=== PATIENT | female | born 1995 ===

== ENCOUNTER 2020-09-12 12:19 | Emergency (ER) | payer MEDICAID ==
[2020-09-12 12:58] VITALS: BP 124/76
[2020-09-12 14:04] LABS: Basophils # (Auto) 0.1 K/mm3 (0.0-0.1); Basophils % (Auto) 0.8 % (0.0-1.8); Eosinophils # (Auto) 0.3 K/mm3 (0.0-0.4); Eosinophils % (Auto) 2.8 % (0.0-4.3); Hematocrit 42.7 % (30.3-42.9); Hemoglobin 14.2 gm/dl (10.1-14.3); Lymphocytes # (Auto) 1.6 K/mm3 (1.2-5.4); Mean Corpuscular HGB Conc 33 % (30-34); Mean Corpuscular Volume 83 fl (79-97); Monocytes % (Auto) 9.9 % (0.0-7.3); Red Blood Count 5.14 M/mm3 (3.65-5.03); Red Cell Distribution Width 13.8 % (13.2-15.2)
[2020-09-12 14:18] LABS: Bacteria,Urine 1+ /HPF (Negative); Bilirubin,Urine NEG (Negative); Blood,Urine LG (Negative); Color,Urine Yellow (Yellow); Mucus,Urine 3+ /HPF; Urobilinogen,Urine < 2.0 mg/dL (<2.0)
--- NOTE | 2020-09-12 14:34 | Emergency Department Report ---
ED General Adult HPI - General Chief complaint: Abdominal Pain Stated complaint: CRAMPING LIGHT HEADED NAUSEOUS Time Seen by Provider: 09/12/20 14:01 Source: patient Mode of arrival: Ambulatory Limitations: No Limitations - History of Present Illness Initial comments: 24-year-old female with no significant past medical history presents to the ER today with complaint of nausea, dizziness and cyst to her right neck. Patient states that symptoms started a couple days ago. She states that she vomited 2 days ago but none since. She states that she does have a mild dry cough which causes pain in her throat when she coughs. She reports no diarrhea, UTI symptoms, abdominal pain, fever at home, chills, runny nose, nasal congestion, headache or any additional symptoms. She states that she is not sure if her symptoms could be coming from the cyst to her right neck or from dehydration. She states that she has had the cyst for a while, but she states that since Monday is becoming a bit more painful and swollen. She states that she has had a cut out once before in the past. Patient denies any ill contacts. She denies any tobacco use. She states she is a social drinker. She denies any illicit drug use. She denies any recent travel. She states that she has not received a COVID-19 vaccine. She has not taken a Covid test and she been sick. Complaint: nausea, dizzy, cyst on neck -: days(s) (2) - Related Data Previous Rx's Medication Instructions Recorded Last Taken Type Ondansetron [Zofran Odt] 4 mg PO Q8HR #15 tab.rapdis 09/12/20 Unknown Rx cephALEXin [Keflex] 500 mg PO Q8HR #21 cap 09/12/20 Unknown Rx Allergies Allergy/AdvReac Type Severity Reaction Status Date / Time No Known Allergies Allergy Verified 09/12/20 12:58 ED Review of Systems ROS: Stated complaint: CRAMPING LIGHT HEADED NAUSEOUS Other details as noted in HPI Comment: All other systems reviewed and negative Constitutional: denies: chills, fever Eyes: denies: eye pain, eye discharge, vision change ENT: throat pain (when coughing ) Respiratory: cough. denies: shortness of breath, SOB with exertion, SOB at rest, stridor, wheezing Cardiovascular: denies: chest pain, palpitations, dyspnea on exertion, edema, syncope, paroxysmal nocturnal dyspnea Gastrointestinal: nausea, vomiting. denies: abdominal pain, diarrhea, constipation, hematemesis, melena, hematochezia Genitourinary: denies: urgency, dysuria, frequency, hematuria, discharge, abnormal menses, dyspareunia Musculoskeletal: denies: back pain, joint swelling, arthralgia Skin: lesions (right posterior neck ). denies: rash, change in color, change in hair/nails, pruritus Neurological: denies: headache, weakness, numbness, paresthesias, confusion, abnormal gait, vertigo Psychiatric: denies: anxiety, depression, auditory hallucinations, visual hallucinations, homicidal thoughts, suicidal thoughts Hematological/Lymphatic: denies: easy bleeding, swollen glands ED Past Medical Hx - Medications Home Medications: Home Medications Medication Instructions Recorded Confirmed Last Taken Type Ondansetron [Zofran Odt] 4 mg PO Q8HR #15 tab.rapdis 09/12/20 Unknown Rx cephALEXin [Keflex] 500 mg PO Q8HR #21 cap 09/12/20 Unknown Rx ED Physical Exam - General Limitations: No Limitations General appearance: alert, in no apparent distress - Head Head exam: Present: atraumatic, normocephalic, normal inspection - Eye Eye exam: Present: normal appearance, PERRL, EOMI - ENT ENT exam: Present: normal exam, mucous membranes moist, TM's normal bilaterally - Neck Neck exam: Present: normal inspection, full ROM, other (Small cystic lesion measuring about the size of a nickel noted to the right posterior neck with some mild tenderness to palpation but no obvious fluctuance, induration or erythema). Absent: meningismus, lymphadenopathy - Respiratory Respiratory exam: Present: normal lung sounds bilaterally. Absent: respiratory distress, wheezes, rales, rhonchi - Cardiovascular Cardiovascular Exam: Present: regular rate, normal rhythm, normal heart sounds - GI/Abdominal GI/Abdominal exam: Present: soft. Absent: distended, tenderness, guarding, rebound - Extremities Exam Extremities exam: Present: normal inspection, full ROM. Absent: tenderness, pedal edema, calf tenderness - Neurological Exam Neurological exam: Present: alert, oriented X3, CN II-XII intact, normal gait, other (negative pronator drift). Absent: motor sensory deficit - Expanded Neurological Exam Expanded Cerebellar function: Finger to Nose: Normal, Heel to Murphy: Normal, Romberg: Normal Sensory exam: Upper Extremity Light Touch: Normal, Upper Extremity Temperature: Normal, Lower Extremity Light Touch: Normal, Lower Extremity Temperature: Normal Motor strength exam: RUE: 5, LUE: 5, RLE: 5, LLE: 5 Best Eye Response ([place]): (4) open spontaneously Best Motor Response ([place]): (6) obeys commands Best Verbal Response (Krist[place]): (5) oriented Kristel Total: 15 - Psychiatric Psychiatric exam: Present: normal affect, normal mood - Skin Skin exam: Present: intact ED Course Vital Signs 09/12/20 12:57 Temperature 98.6 F Pulse Rate 78 Respiratory 14 Rate Blood Pressure 124/76 [Left] O2 Sat by Pulse 100 Oximetry ED Medical Decision Making - Lab Data Result diagrams: 09/12/20 13:45 09/12/20 13:45 - Radiology Data Radiology results: report reviewed Patient: HARPREET YE MR#: [id number] : 1995 Acct:[id number] Age/Sex: 24 / F ADM Date: 09/12/20 Loc: ED Attending Dr: Ordering Physician: MIMI LONDON Date of Service: 09/12/20 Procedure(s): US OB transvaginal Accession Number(s): [id number] cc: MIMI LONDON ULTRASOUND OBSTETRIC INDICATION / CLINICAL INFORMATION: lower abd pain/vag spotting/+preg. TECHNIQUE: Transabdominal and Transvaginal. COMPARISON: None available. FINDINGS: No IUP visualized. Thickened echogenic endometrial stripe measuring 15 mm. ADNEXA: Left ovary within normal limits. 1.9 cm complex right ovarian corpus luteal cyst FREE FLUID: Trace amount free pelvic fluid. ADDITIONAL FINDINGS: None. IMPRESSION: 1. No IUP. Thickened endometrium may be secondary to recent miscarriage. Follow-up ultrasound and beta hCG recommended. 2. 1.9 cm right ovarian corpus luteal cyst. 3. Trace free fluid Signer Name: Thomas Chavez MD Signed: 09/12/2020 6:57 PM Workstation Name: [id number] Transcribed By: TL Dictated By: Thomas Chavez MD Electronically Authenticated By: Thomas Chavez MD Signed Date/Time: 09/12/201856 DD/ 54 TD/TT: - Medical Decision Making Labs reviewed-CBC and CMP unremarkable. Urinalysis appears more contaminated than true UTI but culture is pending. Urine test is positive. Discussed results with patient. She stated that she did have a menstrual cycle from the to 21 August and it was normal. She was not aware that she was . She states that she has been having some mild low abdominal cramping and when she went to the bathroom while waiting in the ER she did notice some spotting. Given abdominal cramping, and spotting we will add a quant hCG, ED Rh and ultrasound. 1916: The patient is Rh+ therefore no indication for RhoGam at this time. Quant hCG only measures at 151 at this time. OB ultrasound shows No IUP. Thickened endometrium may be secondary to recent miscarriage. Follow-up ultrasound and beta hCG recommended. 1.9 cm right ovarian corpus luteal cyst. Trace free fluid. Patient currently resting comfortably, talking on her phone. She is not in any acute distress. She is not toxic or ill-appearing. She is neurologically intact with a normal gait. She has not had any vomiting during stay. She has a nonsurgical abdominal exam. Her vital signs are stable. Discussed lab results and ultrasound results with patient. Informed patient that she will need to follow-up closely with [facility] to monitor closely her quantitative hCG levels and repeat ultrasound. She currently does not have an [facility] and therefore she will be given referral to OB. She understands that if her pain or bleeding worsens in any way to return to the ER. Given that she is we will treat for possible UTI. Informed her that cyst on neck will need follow up with her surgeon. Patient expresses understanding of instructions and agree with plan. Patient was stable at time of discharge Critical care attestation.: If time is entered above; I have spent that time in minutes in the direct care of this critically ill patient, excluding procedure time. ED Disposition Clinical Impression: Threatened miscarriage, Cyst of neck, UTI (urinary tract infection) Disposition: - TO HOME OR SELFCARE Is pt being admited?: No Does the pt Need Aspirin: No Condition: Stable Instructions: Threatened Miscarriage, Epidermal Cyst, [id number], Urinary Tract Infection, Adult, [id number], Abdominal Pain (ED) Additional Instructions: Recommend that you take the Keflex as prescribed. Take the Zofran as needed for nausea. You can take Tylenol as needed for pain. Recommend that you follow-up closely with your [facility]. Return to the ER if symptoms changes or worsens in any way. Prescriptions: cephALEXin [Keflex] 500 mg PO Q8HR #21 cap Ondansetron [Zofran Odt] 4 mg PO Q8HR #15 tab.rapdis Referrals: [facility] [Provider Group] - 3-5 Days [facility] [Provider Group] - 3-5 Days Time of Disposition: 19:12
[2020-09-12 14:39] LABS: Alanine Aminotransferase 10 units/L (7-56); Albumin 4.5 g/dL (3.9-5); Blood Urea Nitrogen 6 mg/dL (7-17); Calcium 9.2 mg/dL (8.4-10.2); Hemolysis Index 1
[2020-09-12 14:40] LABS: BUN/Creatinine Ratio 9
[2020-09-12 14:55] LABS: Platelet Count 156 K/mm3 (140-440)
--- NOTE | 2020-09-12 19:01 | Ultrasound Report ---
ULTRASOUND OBSTETRIC INDICATION / CLINICAL INFORMATION: lower abd pain/vag spotting/+preg. TECHNIQUE: Transabdominal and Transvaginal. COMPARISON: None available. FINDINGS: No IUP visualized. Thickened echogenic endometrial stripe measuring 15 mm. ADNEXA: Left ovary within normal limits. 1.9 cm complex right ovarian corpus luteal cyst FREE FLUID: Trace amount free pelvic fluid. ADDITIONAL FINDINGS: None. IMPRESSION: 1. No IUP. Thickened endometrium may be secondary to recent miscarriage. Follow-up ultrasound and bet a hCG recommended. 2. 1.9 cm right ovarian corpus luteal cyst. 3. Trace free fluid Signer Name: Thomas Chavez MD Signed: 09/12/2020 6:57 PM Workstation Name: [id number]
== END 2020-09-12 19:20 | disposition home or self-care (01) ==
LOC: ED 12:19
DX: O20.0 Threatened abortion (principal); O23.41 Unspecified infection of urinary tract in pregnancy, first trimester; O26.891 Other specified pregnancy related conditions, first trimester; R22.1 Localized swelling, mass and lump, neck; Z3A.01 Less than 8 weeks gestation of pregnancy; Z79.899 Other long term (current) drug therapy
CPT/HCPCS: 36415; 76817; 80053; 81001; 84702; 84703; 85025; 86900; 86901; 87086; 99284

== ENCOUNTER 2020-09-15 23:51 | Emergency (ER) | payer MEDICAID ==
[2020-09-16 01:03] VITALS: BP 138/66
[2020-09-16 02:03] LABS: Hemoglobin 13.5 gm/dl (10.1-14.3); Mean Corpuscular HGB Conc 33 % (30-34); Mean Corpuscular Volume 83 fl (79-97); Platelet Count 145 K/mm3 (140-440); Red Blood Count 4.93 M/mm3 (3.65-5.03); Red Cell Distribution Width 13.7 % (13.2-15.2)
[2020-09-16 02:07] LABS: Blood Urea Nitrogen 6 mg/dL (7-17); Calcium 8.8 mg/dL (8.4-10.2); Hemolysis Index 1
[2020-09-16 02:22] LABS: BUN/Creatinine Ratio 9
[2020-09-16 03:24] LABS: Platelet Estimate Consistent w Auto; RBC Morphology Normal; Total Cells Counted 100
[2020-09-16 06:41] LABS: Bilirubin,Urine NEG (Negative); Blood,Urine LG (Negative); Color,Urine Yellow (Yellow); Mucus,Urine 1+ /HPF; Protein,Urine <15 mg/dL mg/dL (Negative); Urobilinogen,Urine < 2.0 mg/dL (<2.0)
== END 2020-09-16 03:30 ==
LOC: ED 23:51
DX: Z00.8 Encounter for other general examination (principal); Z53.21 Procedure and treatment not carried out due to patient leaving prior to being seen by health care provider
CPT/HCPCS: 36415; 80048; 81001; 84702; 85007; 85025; 86900; 86901; 87086

== ENCOUNTER 2020-09-29 15:26 | Emergency (ER) | payer MEDICAID | END 2020-09-29 20:47 | disposition left against medical advice (07) | LOC: ED 15:26 | DX: L72.8 Other follicular cysts of the skin and subcutaneous tissue (principal); Z53.21 Procedure and treatment not carried out due to patient leaving prior to being seen by health care provider ==